=== PATIENT | male | born 1985 | race African-American/Black ===

== ENCOUNTER 2021-05-21 13:11 | Emergency (ER) | payer SELFPAY ==
[~2021-05-21] VITALS: Ht 172.7 cm; Wt 70.0 kg
[2021-05-21 14:48] VITALS: BP 136/72
== END 2021-05-21 14:53 | disposition home or self-care (01) | DRG 179 ==
LOC: ED 13:11
DX: U07.1 COVID-19 (principal)

== ENCOUNTER 2022-11-27 08:31 | Emergency (ER) | payer SELFPAY ==
[~2022-11-27] VITALS: Ht 170.2 cm; Wt 64.4 kg
[2022-11-27 08:52] VITALS: BP 90/60
[2022-11-27 09:16] VITALS: BP 110/52
[2022-11-27 09:30] VITALS: BP 126/79
[2022-11-27] MEDS ORDERED: AMOXICILLIN500 M2 PO (09:44)
[2022-11-27 09:45] VITALS: BP 122/69
[2022-11-27 09:52] VITALS: BP 126/79
== END 2022-11-27 09:52 | disposition home or self-care (01) | DRG 153 ==
LOC: ED 08:31
DX: J06.9 Acute upper respiratory infection, unspecified (principal); Z20.822 Contact with and (suspected) exposure to COVID-19